=== PATIENT | male | born 1985 | race Caucasian/White ===

== ENCOUNTER 2023-08-22 03:28 | Inpatient (IN) | payer BC, SELFPAY ==
[2023-08-22] MEDS ORDERED: Thiamine HCl 200 MG/2 ML VIAL ONE (04:27)
[2023-08-22 04:40] LABS: #Monocytes 1.3 10x3/uL (0.0-1.1); %Basophils 0.2 % (0.0-2.0); %Eosinophils 0.3 % (0.0-6.0); %Lymphocytes 6.3 % (18.0-47.0); %Monocytes 10.6 % (0.0-10.0); %Neutrophils 82.1 % (40.0-75.0); Hematocrit 36.2 % (38.8-50.0); Hemoglobin 12.7 g/dL (13.5-17.5); Mean Corpuscular HGB CONC 35.1 g/dL (32.0-36.0); Mean Corpuscular Hemoglobin 31.4 pg (27.0-33.0); Mean Corpuscular Volume 89.4 fl (81.2-95.1); Mean Platelet Volume 8.9 fl (7.4-10.4); Platelet Count 330 10x3/uL (150-450); RBC Distribution Width 11.9 % (11.5-14.5); Red Blood Cell (RBC) Count 4.05 10x6/uL (4.32-5.72); White Blood Cell (WBC) Count 12.2 10x3/uL (3.5-10.5)
[2023-08-22 04:44] LABS: Critical Call Chem-Lactate ERS.EG @0442
[2023-08-22] MEDS ORDERED: Folic Acid 5 MG/ML MDV IVP SCH (04:45)
[2023-08-22 04:54] LABS: Troponin I Less than 0.010 ng/mL (< 0.028)
[2023-08-22 04:56] LABS: Acetaminophen Less than 10 mcg/mL (10.0-30.0); Alcohol Less than 10.0 mg/dL (Less than 10); Magnesium 3.2 mg/dL (1.6-2.6); Salicylate Less than 8.0 mg/dL (15.0-30.0)
[2023-08-22 04:57] LABS: ALT (SGPT) 38 U/L (8-55); AST (SGOT) 90 U/L (5-34); Albumin 4.4 g/dL (3.5-5.0); Alkaline Phosphatase 50 U/L (40-110); Anion Gap 17 mmol/L (10-20); BUN (Urea Nitrogen) 13 mg/dL (8.9-20.6); Bilirubin, Total 0.3 mg/dL (0.2-1.2); CK (CPK) 3195 U/L (30-200); Calc. Creatinine Clearance 0 mL/min (70-130); Calcium 9.6 mg/dL (7.8-10.44); Carbon Dioxide 20 mmol/L (22-29); Chloride 102 mmol/L (98-107); Estimated GFR 93; Globulin 2.4 g/dL (2.4-3.5); Glucose 91 mg/dL (70-105); Potassium 3.7 mmol/L (3.5-5.1); Protein, Total 6.8 g/dL (6.0-8.3); Sodium 135 mmol/L (136-145)
[2023-08-22] MEDS ORDERED: Lorazepam 2 MG/ML VIAL ONE (05:05)
[2023-08-22] MEDS ORDERED: Diazepam 10 MG/2 ML SYRINGE ONE (05:17)
[2023-08-22] MEDS ORDERED: Ondansetron PF 4 MG/2 ML Vial IVP PRN (05:26)
[2023-08-22] MEDS ORDERED: Lorazepam 2 MG/ML VIAL SLOW IVP PRN (05:28)
[2023-08-22] MEDS ORDERED: Lactated Ringer's 1,000 ML IV SCH (05:30)
[2023-08-22 06:19] LABS: Bilirubin Neg (Negative); Blood, Urine 50 (Negative); Glucose, Urine (Dipstick) Normal (Negative); Ketone, Urine Negative (Negative); Leukocyte Negative (Negative); Nitrite Negative (Negative); Protein, Urine (Dipstick) 30 mg/dl (Neg-Trace); Specific Gravity, Urine 1.015 (1.005-1.030); Urobilinogen Normal mg/dL (Less than 2)
[2023-08-22 06:25] LABS: Amphetamine Not Detected (NotDetected); Barbiturates Screen Not Detected (NotDetected); Benzodiazepine Screen Detected (NotDetected); Cocaine Metabolite Screen Not Detected (NotDetected); Methadone Not Detected (NotDetected); Methamphetamine Not Detected (NotDetected); Opiate Screen Not Detected (NotDetected); Oxycodone Screen Not Detected (NotDetected); Phencyclidine (PCP) Not Detected (NotDetected); THC/Cannabinoid Screen Detected (NotDetected); Tricyclic Screen Detected (NotDetected)
[2023-08-22 06:30] LABS: Clarity Clear (Clear)
[2023-08-22 06:31] LABS: Bacteria/HPF None Seen HPF (None Seen); CAUTI Indications for Culture Alt mental st,lethar; RBC/HPF 0-3 HPF (0-3); Transitional Epithelial 0-3 HPF (None Seen); WBC/HPF 0-3 HPF (0-3)
[2023-08-22 06:32] LABS: Urine Culture Reflex No No
[2023-08-22] MEDS: Dextrose 5%-Lactated Ringers 1,000 ML IV SCH ×3 (08:30→20:36)
[2023-08-22 08:53] VITALS: BMI 25.3
[2023-08-22] MEDS ORDERED: Lorazepam 2 MG/ML VIAL SLOW IVP SCH ×3 (09:00→10:00)
[2023-08-22] MEDS ORDERED: Multivitamins, Adult 10 ML, Folic Acid 1 MG, Thiamine HCl 100 MG, Admixture Fee 1 EACH ... IV SCH (09:00)
[2023-08-22] MEDS: Pantoprazole 40 MG VIAL IVP SCH (09:09)
[2023-08-22] MEDS: Lorazepam 2 MG/ML VIAL SLOW IVP PRN ×4 (09:34→22:36)
[2023-08-22 10:27] LABS: Lactic Acid 0.9 mmol/L (0.5-2.2)
[2023-08-22 10:50] LABS: ALT (SGPT) 51 U/L (8-55); AST (SGOT) 172 U/L (5-34); Albumin 4.1 g/dL (3.5-5.0); Alkaline Phosphatase 54 U/L (40-110); Anion Gap 14 mmol/L (10-20); BUN (Urea Nitrogen) 11 mg/dL (8.9-20.6); Bilirubin, Total 0.6 mg/dL (0.2-1.2); Calc. Creatinine Clearance 130 mL/min (70-130); Calcium 8.6 mg/dL (7.8-10.44); Carbon Dioxide 21 mmol/L (22-29); Chloride 108 mmol/L (98-107); Estimated GFR 114; Globulin 2.5 g/dL (2.4-3.5); Glucose 102 mg/dL (70-105); Potassium 3.9 mmol/L (3.5-5.1); Protein, Total 6.6 g/dL (6.0-8.3); Sodium 139 mmol/L (136-145)
[2023-08-22] MEDS: Dexmedetomidine In 0.9 % NaCl 100 ML IVPB SCH ×2 (11:20→21:20)
[2023-08-22] MEDS ORDERED: QUEtiapine 100 MG TAB PO SCH (13:00)
[2023-08-22] MEDS ORDERED: Ziprasidone 20 MG VIAL ONE (13:44)
[2023-08-22] MEDS ORDERED: Ziprasidone 20 MG VIAL IM SCH (13:45)
[2023-08-22] MEDS ORDERED: Haloperidol Lactate 5 MG/ML VIAL SLOW IVP PRN (13:58)
[2023-08-22] MEDS: chlordiazePOXIDE HCl 5 MG CAP PO SCH ×2 (14:06→20:14)
[2023-08-22] MEDS: Lorazepam 2 MG/ML VIAL SLOW IVP SCH ×3 (14:07→18:45)
[2023-08-22] MEDS: Enoxaparin 40 MG (0.4 mL) SYRINGE SC SCH (20:14)
[2023-08-22] MEDS: Thiamine HCl 200 MG/2 ML VIAL SLOW IVP SCH (20:14)
[2023-08-22] MEDS: QUEtiapine 100 MG TAB PO SCH (20:14)
[2023-08-23] MEDS: Lorazepam 2 MG/ML VIAL SLOW IVP PRN ×7 (00:31→15:42)
[2023-08-23 02:53] LABS: #Basophils 0.1 10x3/uL (0.0-0.2); #Eosinphils 0.1 10x3/uL (0.0-0.5); #Monocytes 1.2 10x3/uL (0.0-1.1); #Neutrophils 4.7 10x3/uL (1.5-8.4); %Basophils 0.6 % (0.0-2.0); %Eosinophils 1.1 % (0.0-6.0); %Monocytes 15.8 % (0.0-10.0); %Neutrophils 60.2 % (40.0-75.0); Hematocrit 35.2 % (38.8-50.0); Hemoglobin 12.5 g/dL (13.5-17.5); Mean Corpuscular HGB CONC 35.5 g/dL (32.0-36.0); Mean Platelet Volume 8.7 fl (7.4-10.4); Platelet Count 302 10x3/uL (150-450); RBC Distribution Width 12.1 % (11.5-14.5); Red Blood Cell (RBC) Count 3.91 10x6/uL (4.32-5.72); White Blood Cell (WBC) Count 7.9 10x3/uL (3.5-10.5)
[2023-08-23 03:08] LABS: Lactic Acid 0.9 mmol/L (0.5-2.2)
[2023-08-23 03:14] LABS: ALT (SGPT) 69 U/L (8-55); AST (SGOT) 213 U/L (5-34); Albumin 3.8 g/dL (3.5-5.0); Alkaline Phosphatase 46 U/L (40-110); Anion Gap 12 mmol/L (10-20); BUN (Urea Nitrogen) 8 mg/dL (8.9-20.6); Bilirubin, Total 0.5 mg/dL (0.2-1.2); Calc. Creatinine Clearance 135 mL/min (70-130); Calcium 8.8 mg/dL (7.8-10.44); Carbon Dioxide 26 mmol/L (22-29); Chloride 107 mmol/L (98-107); Estimated GFR 115; Globulin 2.5 g/dL (2.4-3.5); Glucose 99 mg/dL (70-105); Magnesium 2.5 mg/dL (1.6-2.6); Potassium 3.8 mmol/L (3.5-5.1); Protein, Total 6.3 g/dL (6.0-8.3); Sodium 141 mmol/L (136-145)
[2023-08-23] MEDS: Dextrose 5%-Lactated Ringers 1,000 ML IV SCH ×4 (04:09→21:10)
[2023-08-23 04:27] LABS: CK (CPK) 9067 U/L (30-200)
[2023-08-23] MEDS ORDERED: Sodium Chloride 0.45% 1,000 ML IV SCH (05:30)
[2023-08-23] MEDS: Pantoprazole 40 MG VIAL IVP SCH (08:01)
[2023-08-23] MEDS: Multivit, Therapeutic 1 TAB PO SCH (08:02)
[2023-08-23] MEDS: chlordiazePOXIDE HCl 5 MG CAP PO SCH ×3 (08:02→20:27)
[2023-08-23] MEDS: QUEtiapine 100 MG TAB PO SCH ×2 (08:02→20:27)
[2023-08-23] MEDS ORDERED: Electrolyte Replacement Protocol 1 EACH FS PRN (08:15)
[2023-08-23] MEDS ORDERED: ATOMOXETINE HCL 40 MG PO SCH (09:00)
[2023-08-23] MEDS: Dexmedetomidine In 0.9 % NaCl 100 ML IVPB SCH (12:18)
[2023-08-23] MEDS ORDERED: chlordiazePOXIDE HCl 25 MG CAP PO SCH (15:15)
[2023-08-23] MEDS: Thiamine HCl 200 MG/2 ML VIAL SLOW IVP SCH (20:26)
[2023-08-23] MEDS: Enoxaparin 40 MG (0.4 mL) SYRINGE SC SCH (20:27)
[2023-08-24] MEDS: Dexmedetomidine In 0.9 % NaCl 100 ML IVPB SCH (01:32)
[2023-08-24] MEDS: Dextrose 5%-Lactated Ringers 1,000 ML IV SCH ×2 (02:55→19:33)
[2023-08-24] MEDS: Multivit, Therapeutic 1 TAB PO SCH (07:34)
[2023-08-24] MEDS: Pantoprazole 40 MG VIAL IVP SCH (07:34)
[2023-08-24] MEDS: QUEtiapine 100 MG TAB PO SCH ×2 (07:34→21:20)
[2023-08-24] MEDS: chlordiazePOXIDE HCl 5 MG CAP PO SCH ×3 (07:35→21:20)
[2023-08-24 09:38] LABS: Magnesium 2.1 mg/dL (1.6-2.6)
[2023-08-24 09:52] LABS: CK (CPK) 5385 U/L (30-200)
[2023-08-24] MEDS ORDERED: Polyethylene Glycol 3350 17 GM Packet PO PRN (17:01)
[2023-08-24] MEDS: Milk Of Magnesia 30 ML UDCUP PO PRN ×2 (17:25→23:33)
[2023-08-24] MEDS ORDERED: Nicotine 14 MG PATCH TOP SCH (20:00)
[2023-08-24] MEDS: Enoxaparin 40 MG (0.4 mL) SYRINGE SC SCH (21:20)
[2023-08-24] MEDS: Thiamine HCl 200 MG/2 ML VIAL SLOW IVP SCH (21:20)
[2023-08-25 04:25] VITALS: BP 116/59; TEMP 98.8
[2023-08-25] MEDS: Milk Of Magnesia 30 ML UDCUP PO PRN (06:33)
[2023-08-25] MEDS: Pantoprazole 40 MG VIAL IVP SCH (08:40)
[2023-08-25] MEDS: chlordiazePOXIDE HCl 5 MG CAP PO SCH (08:40)
[2023-08-25] MEDS: QUEtiapine 100 MG TAB PO SCH (08:41)
[2023-08-25] MEDS: Multivit, Therapeutic 1 TAB PO SCH (08:41)
== END 2023-08-25 12:22 | disposition home or self-care (01) | DRG 896 ==
LOC: CSHERS 03:28 → SUATTDRO 03:28 → CSHIMCU 05:30
PROVIDERS: ADMIT Internal Medicine; ATTEND Internal Medicine
DX: F10.931 Alcohol use, unspecified with withdrawal delirium (principal); G92.8 Other toxic encephalopathy; E87.20 Acidosis, unspecified; M62.82 Rhabdomyolysis; D72.829 Elevated white blood cell count, unspecified; F90.9 Attention-deficit hyperactivity disorder, unspecified type; R56.9 Unspecified convulsions
CPT/HCPCS: 36415; 51701; 70450; 71045; 80053; 80306; 80307; 81001; 82550; 83605; 83735; 84100; 84443; 84484; 85025; 93005; 93010; 96361; 96374; 96375; C9113; J1630; J1650; J2060; J3360; J3411; J3486; J7042; J7120

== ENCOUNTER 2023-11-29 16:02 | Outpatient (CLI) | payer BC | END 2023-11-29 16:03 | disposition home or self-care (01) | LOC: CSHRAD 16:02 | PROVIDERS: ATTEND Family Medicine | DX: K62.3 Rectal prolapse (principal); F10.20 Alcohol dependence, uncomplicated; K59.00 Constipation, unspecified; K92.1 Melena; Z83.79 Family history of other diseases of the digestive system | CPT/HCPCS: 74018 ==

== ENCOUNTER 2025-04-14 14:37 | Emergency (ER) | payer BC, SELFPAY ==
[2025-04-14 17:28] LABS: Acetaminophen Less than 10 mcg/mL (Less than 10); Salicylate Less than 8.0 mg/dL (Less than 8.0)
== END 2025-04-14 18:05 | disposition home or self-care (01) ==
LOC: CSHERS 14:37
DX: F10.129 Alcohol abuse with intoxication, unspecified (principal); F17.210 Nicotine dependence, cigarettes, uncomplicated; Y90.8 Blood alcohol level of 240 mg/100 ml or more
CPT/HCPCS: 36415; 80307; 99284